=== PATIENT | male | born 1950 | race Caucasian/White ===

== ENCOUNTER 2022-10-09 10:50 | Emergency (ER) | payer OTHER, MEDICARE ==
[2022-10-09] MEDS ORDERED: Sodium Chloride 0.9% 10 ML Syringe FLUSH PRN (11:09)
[2022-10-09 11:43] LABS: CHLORIDE,CL 102 mmol/L (98-107); SODIUM,NA 139 mmol/L (136-145)
[2022-10-09 11:44] LABS: ANION GAP 14.4 mmol/L (5-15); ESTIMATED GFR 43 mL/min (>=60)
[2022-10-09 12:04] LABS: HEMOGLOBIN A1C 5.2 % (<5.7)
[2022-10-09] MEDS: Iopamidol 755 Mg/ML 100 ML Bottle IVPUSH ONE (12:09)
[2022-10-09] MEDS: Sodium Chloride 0.9% 1,000 ML IV SCH (12:15)
[2022-10-09] MEDS: Aspirin 81 MG Tab.Chew PO ONE (13:51)
[2022-10-09] MEDS: Heparin Sodium 5,000 Units/ML Vial IVPUSH ONE (13:51)
[2022-10-09] MEDS: Heparin Sodium/0.45% NaCl 25,000 UNITS/500 ML BAG IV STA (14:04)
== END 2022-10-09 16:25 | disposition short-term general hospital (02) ==
LOC: VM.ED 10:50
DX: I74.3 Embolism and thrombosis of arteries of the lower extremities (principal); I12.9 Hypertensive chronic kidney disease with stage 1 through stage 4 chronic kidney disease, or unspecified chronic kidney disease; E10.22 Type 1 diabetes mellitus with diabetic chronic kidney disease; N18.30 Chronic kidney disease, stage 3 unspecified; Z72.0 Tobacco use; Z88.6 Allergy status to analgesic agent; Z88.8 Allergy status to other drugs, medicaments and biological substances
CPT/HCPCS: 75635; 80053; 83036; 85025; 96361; 96365; 96366; 96376; 99285-25; A9270-GY; J1644; J7030; Q9967